=== PATIENT | male | born 1985 | race Caucasian/White ===

== ENCOUNTER 2016-11-06 19:02 | Emergency (ER) | payer BC ==
[2016-11-06 19:02] VITALS: BMI 35.5
[2016-11-06 19:25] VITALS: BP 136/93; PULSE 77; TEMP 98.3
[2016-11-06 19:39] LABS: AUTOMATED BASOPHIL 1.1 % (0-2); AUTOMATED EOSINOPHIL 7.3 % (0-5); AUTOMATED LYMPH 32.6 % (17-44); AUTOMATED MONOCYTE 10.2 % (3-10); AUTOMATED NEUTROPHIL 48.8 % (45-76); MPV 10.1 fL (7.4-10.4)
[2016-11-06 19:48] LABS: PARTIAL THROMB. TIME 26.3 SEC (22-35)
[2016-11-06 19:53] LABS: BLOOD UREA NITROGEN 8 MG/DL (9-20); CALCIUM 9.4 MG/DL (8.4-10.2); CALCULATED OSMOLALITY 264 MOs/Kg (270-290); CHLORIDE 104 mEq/L (98-107); GLUCOSE 105 MG/DL (70-99); SODIUM LEVEL 138 mEq/L (137-146); TOTAL PROTEIN 7.4 G/DL (6.3-8.2)
== END 2016-11-06 20:38 | disposition left against medical advice (07) ==
LOC: ED 19:02
DX: R07.9 Chest pain, unspecified (principal); K21.9 Gastro-esophageal reflux disease without esophagitis; Z53.21 Procedure and treatment not carried out due to patient leaving prior to being seen by health care provider
CPT/HCPCS: 80053; 83880; 84484; 85025; 85610; 85730; 99281